=== PATIENT | male | born 1965 | race Caucasian/White ===

== ENCOUNTER 2024-07-25 10:47 | Emergency (ER) | payer BC ==
[~2024-07-25] VITALS: Ht 180.3 cm; Wt 87.5 kg
[2024-07-25 11:06] LABS: PLATELET COUNT (AUTO) 181 K/uL (150-450); WHITE BLOOD COUNT (AUTO) 5.4 K/uL (4.3-11.0)
[2024-07-25 11:09] LABS: BASOPHILS % (AUTO) 0.6 % (0.0-2.0); EOSINOPHILS % (AUTO) 1.4 % (0.0-6.0); HEMATOCRIT 49 % (39-51); HEMOGLOBIN 17.2 g/dL (13.5-17.5); LYMPHOCYTES # (AUTO) 1.6 K/uL (0.8-4.8); LYMPHOCYTES % (AUTO) 28.8 % (20.0-44.0); MEAN CORPUSCULAR HEMOGLOBIN 34 PG (26.0-33.0); MEAN CORPUSCULAR HGB CONC 35 g/dl (31.0-36.0); MEAN CORPUSCULAR VOLUME 98 fL (80-96); MONOCYTES # (AUTO) 0.5 K/uL (0.1-1.30); MONOCYTES % (AUTO) 9.8 % (2.0-12.0); NEUTROPHILS # (AUTO) 3.2 K/uL (1.8-8.9); NEUTROPHILS % (AUTO) 59.4 % (43.0-81.0); RED BLOOD CELL COUNT(AUTO) 5.06 MIL/uL (4.5-6.0); RED CELL DISTRIBUTION WIDTH 12.8 % (11.5-15.0)
[2024-07-25 11:10] LABS: EOSINOPHILS # (AUTO) 0.1 K/uL (0.0-0.7)
[2024-07-25 11:12] LABS: CALCIUM, SERUM 9.2 mg/dL (8.5-10.1); CARBON DIOXIDE 23 mmol/L (21-32); CHLORIDE 106 mmol/L (98-107); CREATININE 1.3 mg/dL (0.6-1.3); GLUCOSE 166 mg/dL (74-106); POTASSIUM 4.3 mmol/L (3.5-5.1); SODIUM SERUM 138 mmol/L (136-145); UREA NITROGEN, BLOOD 18 mg/dL (7-18)
[2024-07-25] MEDS ORDERED: NITROGLYCERIN 0.4 MG/TAB BOTTLE ONE (11:53)
[2024-07-25] MEDS ORDERED: NITROGLYCERIN PACKET 1 GM PACKET ONE (11:53)
[2024-07-25] MEDS ORDERED: ASPIRIN 81 MG TAB.CHEW ONE (11:54)
[2024-07-25] MEDS: ASPIRIN 81 MG TAB.CHEW PO ONE (12:06)
[2024-07-25] MEDS ORDERED: HEPARIN SODIUM, PORCINE 5000 UNITS/1 ML VIAL ONE (12:07)
[2024-07-25] MEDS: HEPARIN SODIUM, PORCINE 5000 UNITS/1 ML VIAL IV ONE (12:12)
[2024-07-25] MEDS: NITROGLYCERIN PACKET 1 GM PACKET TOP ONE (12:13)
[2024-07-25] MEDS: NITROGLYCERIN 0.4 MG/TAB BOTTLE SL ONE (12:13)
[2024-07-25] MEDS ORDERED: HEPARIN INFUSION/D5W 500 ML IV ONE (12:16)
[2024-07-25 12:41] LABS: INR 1.08 (0.91-1.10); PARTIAL THROMBOPLASTIN TIME 25.8 SEC (24.3-34.3); PROTHROMBIN TIME 11.4 SECS (9.2-11.1)
[2024-07-25] MEDS: HEPARIN INFUSION/D5W 500 ML IV PRN (12:48)
[2024-07-25 13:39] VITALS: BP 130/93; TEMP 97.9; O2SAT 96
== END 2024-07-25 13:40 | disposition short-term general hospital (02) ==
LOC: ER 10:57
DX: I24.9 Acute ischemic heart disease, unspecified (principal); I21.3 ST elevation (STEMI) myocardial infarction of unspecified site; R07.89 Other chest pain; I10 Essential (primary) hypertension; M10.9 Gout, unspecified
CPT/HCPCS: 99291; 96365; 93005 ×2; 71045; 96376; 85025; 80048; 85610; 85730; 36415; 84484 ×2; J1644 ×2